=== PATIENT | male | born 1970 | race Caucasian/White ===

== ENCOUNTER 2017-03-19 19:05 | Emergency (ER) | payer BC, OTHER ==
[2017-03-19 19:19] VITALS: BP 134/77; PULSE 84; RESP 16; TEMP 97.9; O2SAT 94
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
== END 2017-03-19 19:33 | disposition home or self-care (01) ==
LOC: CED 19:05
DX: S09.90XA Unspecified injury of head, initial encounter (principal); W21.09XA Struck by other hit or thrown ball, initial encounter; Y99.8 Other external cause status; Y93.65 Activity, lacrosse and field hockey

== ENCOUNTER 2017-06-17 11:01 | Emergency (ER) | payer BC | END 2017-06-17 11:03 | disposition left against medical advice (07) | LOC: CED 11:01 | DX: Z53.21 Procedure and treatment not carried out due to patient leaving prior to being seen by health care provider (principal) ==

== ENCOUNTER 2017-06-28 20:03 | Emergency (ER) | payer BC ==
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
[2017-06-28 20:32] VITALS: BP 131/79
[2017-06-28] MEDS ORDERED: CLINDAMYCIN 150MG PREPACK#6 BTL TAKEHOME ONE (20:32)
[2017-06-28] MEDS ORDERED: SILVER SULFADIAZINE 50 GM JAR TP ONE (20:33)
[2017-06-28] MEDS ORDERED: HYDROCOD/APAP 5/325 PREPACK#6 BTL TAKEHOME ONE (20:33)
[2017-06-28] MEDS ORDERED: CLINDAMYCIN 150 MG CAP PO ONE (20:54)
== END 2017-06-28 21:06 | disposition home or self-care (01) ==
LOC: CED 20:03
DX: T25.221A Burn of second degree of right foot, initial encounter (principal); L03.115 Cellulitis of right lower limb; X12.XXXA Contact with other hot fluids, initial encounter

== ENCOUNTER 2017-11-21 07:22 | Emergency (ER) | payer BC ==
--- NOTE | 2017-11-21 08:13 | EDPHY ---
HPI/HX/ROS/PE/MDM Narrative: CHIEF COMPLAINT: Sore throat HPI: The patient is a 47-year-old male with no significant past medical history. He reports approximately 5 days of sore throat and headache. He complains primarily of swelling and pain to the bilateral anterior throat area, which is worse with swallowing. The patient has been able to drink a normal amount of water. He denies fever. He also complains of a tender lump to the right posterior neck which was quite painful over the last few days but has gotten slowly better. The patient has been taking Excedrin with some relief. He travels internationally frequently for work but has not traveled within the last several weeks. He denies chest pain, shortness of breath, cough, runny nose, abdominal pain. REVIEW OF SYSTEMS: Aside from elements discussed in the HPI, a comprehensive 10-point review of systems was reviewed and is negative. PMH: Includes multiple orthopedic injuries, but no significant medical history. SOCIAL HISTORY: Works as simulation software engineer. Denies drug abuse. PHYSICAL EXAM: General:Patient is alert, in no acute distress. ENT: Sclera mildly injected bilaterally. Posterior oropharynx is without erythema or exudate. Normal voice, no drooling. Neck: Normal inspection. Tender bilateral cervical lymphadenopathy is present with no obvious mass. A tender rubbery nodule is present along the right posterior lymphatic chain. Respiratory:No respiratory distress. Breath sounds normal bilaterally. Cardiovascular: Regular rate and rhythm. Strong peripheral pulses. Normal cap refill. Abdomen:The abdomen is nontender to palpation. There are no peritoneal signs. There are normal bowel sounds. Back: Normal to inspection. No tenderness to palpation. Skin: Normal color. No rash. Warm and dry. Extremities: Normal appearance. Full range of motion. Neuro: Oriented x3. Normal motor function. Normal sensory function. MDM: This patient presents with sore throat and cervical lymphadenopathy for several days. There are no signs of meningitis and the patient is afebrile. Of particular concern is the isolated posterior chain mass. This appears to represent reactive lymphadenopathy, but this is somewhat unusual. After discussion with the patient, I ordered CBC and chemistry panel which are normal. There are no signs of active leukemia or other white blood cell disturbance. I have also sent off an EBV panel which the patient was informed he needed to follow up on. The patient declined IV fluids. I will treat him with a single dose of IV Decadron to help with the swelling. I strongly encouraged the patient to follow up with his primary care physician for further workup. I suspect this represents a viral syndrome with reactive cervical lymphadenopathy, but the patient stands I am unable to rule out for the pathology without additional testing, which he declines. - Data Points Laboratory Results: Laboratory Results 11/21/17 Unknown 11/21/17 11/21/17 11/21/17 Unknown Unknown 08:24 WBC 9.89 10^3/uL H 10^3/uL (3.80-9.50) RBC 5.50 10^6/uL 10^6/uL (4.40-6.38) Hgb 15.5 g/dL g/dL (13.7-17.5) Hct 46.0 % % (40.0-51.0) MCV 83.6 fL fL (81.5-99.8) MCH 28.2 pg pg (27.9-34.1) MCHC 33.7 g/dL g/dL (32.4-36.7) RDW 13.2 % % (11.5-15.2) Plt Count 284 10^3/uL 10^3/uL (150-400) MPV 9.6 fL fL (8.7-11.7) Neut % (Auto) Pending Lymph % (Auto) Pending [place] % (Auto) Pending Eos % (Auto) Pending Baso % (Auto) Pending Nucleat RBC Rel Count Pending Absolute Neuts (auto) Pending Absolute Lymphs (auto) Pending Absolute Monos (auto) Pending Absolute Eos (auto) Pending Absolute Basos (auto) Pending Absolute Nucleated RBC Pending Immature Gran % Pending Immature Gran # Pending Platelet Estimate Pending POC Sodium 143 mEq/L mEq/L (135-145) POC Potassium 4.3 mEq/L mEq/L (3.3-5.0) POC Chloride 103.0 mEq/L mEq/L (97-110) POC Total CO2 25 mEq/L mEq/L (22-31) POC BUN 23 mg/dL mg/dL (7-23) POC Creatinine 1.0 mg/dL mg/dL (0.7-1.3) POC Glucose 136 mg/dL H mg/dL (70-100) POC Calcium 9.6 mg/dL mg/dL (8.5-10.4) EBV Capsid Ag IgG Ab Pending EBV Capsid Ag IgM Ab Pending EBV Nuclear Antigen Ab Pending EBV Interpretation Pending Point of Care Test Results: Chemistry 11/21/17 08:24 POC Sodium 143 mEq/L mEq/L (135-145) POC Potassium 4.3 mEq/L mEq/L (3.3-5.0) POC Chloride 103.0 mEq/L mEq/L (97-110) POC Total CO2 25 mEq/L mEq/L (22-31) POC BUN 23 mg/dL mg/dL (7-23) POC Creatinine 1.0 mg/dL mg/dL (0.7-1.3) POC Glucose 136 mg/dL H mg/dL (70-100) POC Calcium 9.6 mg/dL mg/dL (8.5-10.4) Strep Strep Throat Swab Collection 11/21/17 Date Strep Throat Swab Swab 07:40 Collection Time Strep Result Not Detected General Time Seen by Provider: 11/21/17 07:58 Initial Vital Signs: Initial Vital Signs Temperature (C) 37.0 C 11/21/17 07:30 Heart Rate 78 11/21/17 07:30 Respiratory Rate 18 11/21/17 07:30 Blood Pressure 136/86 H 11/21/17 07:30 O2 Sat (%) 95 11/21/17 07:30 O2 Delivery Mode Room Air Allergies/Adverse Reactions: Penicillins Allergy (Unknown, Verified 03/19/17 19:15) Unknown Home Medications: Medication Instructions Recorded NK [No Known Home Meds] 11/21/17 Departure - Departure Disposition: Home, Routine, Self-Care Clinical Impression: Viral syndrome, Cervical lymphadenopathy Condition: Good Instructions: Pharyngitis (ED) Additional Instructions: We have sent your blood off for a test called EBV. Please call the ED in 48 hours to receive this lab result. Follow-up with your primary care doctor without fail by the end of the week for re-evaluation. Return to the ED immediately for fever, worsening sore throat, difficulty breathing, severe headache, vomiting or other concerns. Use over the counter ibuprofen and tylenol as directed. Referrals: YUNIER STOLL [Primary Care Provider] - As per Instructions
[2017-11-21 09:39] LABS: PLATELET COUNT 284 10^3/uL (150-400)
[2017-11-21] MEDS ORDERED: DEXAMETHASONE 10 MG/ML VIAL IVP ONE (09:58)
[2017-11-21 10:13] VITALS: BP 130/78
== END 2017-11-21 10:12 | disposition home or self-care (01) ==
LOC: CED 07:22
DX: B34.9 Viral infection, unspecified (principal); R59.0 Localized enlarged lymph nodes
CPT/HCPCS: 80048-PO; 86664-90; 86665-90; 96374; J1100

== ENCOUNTER 2018-07-26 08:44 | Emergency (ER) | payer BC ==
[2018-07-26] MEDS ORDERED: FAMOTIDINE 20 MG in NS 100 ML IV ONE (09:07)
[2018-07-26] MEDS ORDERED: ONDANSETRON 4 MG/2 ML VIAL IVP ONE (09:07)
[2018-07-26] MEDS ORDERED: NS 1,000 ML IV ONE (09:07)
--- NOTE | 2018-07-26 09:20 | EDPHY ---
H & P Stated Complaint: PT. states 1hr after eating yesterday 2pm diarrhea-bloody, chills,vomiting Time Seen by Provider: 07/26/18 08:46 HPI/ROS: CHIEF COMPLAINT: Vomiting and diarrhea History by patient HISTORY OF PRESENT ILLNESS: 47-year-old otherwise healthy man presents complaining of acute onset diarrhea and vomiting which began yesterday and hour after eating tacos at a restaurant. He 1st noticed some upper abdominal pain which he describes as sharp and then he had an episode of diarrhea and then a 2nd episode of diarrhea that turned bloody. Initially was also watery but has turned more solid. He has had multiple episodes of vomiting without hematemesis. He denies any fever but has had some chills. He continues have intermittent sharp mostly upper abdominal pain. Does not radiate into his back. He has taken Pepto-Bismol twice with some relief from the pain. He has been able to drink water but not take any solid foods. He denies any urinary symptoms. He has no prior history of abdominal surgeries. He drinks very little alcohol. He does not smoke or use any drugs. He regularly takes Zantac for "heartburn". REVIEW OF SYSTEMS: As in HPI, and all other systems reviewed and are negative Source: Patient - Personal History Tetanus Vaccine Date: 12/2012 - Medical/Surgical History Hx Asthma: No Hx Chronic Respiratory Disease: No Hx Diabetes: No Hx Cardiac Disease: No Hx Renal Disease: No Hx Cirrhosis: No Hx Alcoholism: No Hx HIV/AIDS: No Hx Splenectomy or Spleen Trauma: No Other PMH: ORTHO SURGERY-LAMENECTOMY, 2 ULNAR TRANSPOSITION SURGERIES,T & A. Med hx-none - Social History Smoking Status: Never smoked - Physical Exam Exam: General Appearance: Alert, nontoxic-appearing. Eyes: Pupils equal and round, extraocular movements intact, no pallor or injection. Mouth: Mucous membranes moist. Pharynx clear Respiratory: Normal, effort, lungs are clear to auscultation. No wheezes, rales or rhonchi. Cardiovascular: Regular rate and rhythm. S1, S2, no murmurs, gallops or rubs appreciated Gastrointestinal: bowel sounds present, Abdomen is soft and mild tenderness mostly in the right lower quadrant, no masses Rectal: Positive tenderness, no stool in vault, mucous guaiac positive Back: No CVA tenderness, no bony tenderness Neurological: Awake, alert and oriented x 3, no pronator drift, normal gait, no pronator drift Skin: Warm and dry, no rashes. Musculoskeletal: No deformities or tenderness. Extremities: full range of motion, no edema Psychiatric: Patient has normal affect, there is no agitation. Constitutional: Initial Vital Signs Temperature (C) 36.8 C 07/26/18 08:50 Heart Rate 54 L 07/26/18 08:50 Respiratory Rate 16 07/26/18 08:50 Blood Pressure 123/76 H 07/26/18 08:50 O2 Sat (%) 95 07/26/18 08:50 O2 Delivery Mode Room Air Allergies/Adverse Reactions: Penicillins Allergy (Unknown, Verified 07/26/18 08:49) Unknown Home Medications: Medication Instructions Recorded Ondansetron Odt [Zofran Odt 4 mg 4 mg PO Q4 #12 tab 07/26/18 (*)] Zantac 07/26/18 Medical Decision Making ED Course/Re-evaluation: 47-year-old man presents with 12 hr of nausea, vomiting abdominal pain. Patient is noted have some mild right lower quadrant tenderness. He was given IV fluids, Zofran and Pepcid. He declined pain medicines. Labs were notable for normal white blood cell count and normal hemoglobin. Chemistries are notable for an elevated creatinine of 1.4 just above the upper limit of normal. Patient was urinating. This may be due to dehydration I am recommending recheck with his primary care physician next week for this.. On re-evaluation he was feeling about same but was tolerating p. O.. On repeat exam his tenderness has improved. and this point I think this is more likely an infectious gastroenteritis versus appendicitis, although we discussed that we cannot exclude appendicitis at this time. Patient was unable to give a stool sample in the ER. He remained hemodynamically stable. He was discharged home with Zofran for symptoms and recheck with his primary care physician in 24 hr for his abdominal pain and sooner if worse in the ER. Patient understands and is agreeable to this plan.. - Data Points Laboratory Results: 07/26/18 09:38 POC Sodium 143 mEq/L mEq/L (135-145) POC Potassium 4.2 mEq/L mEq/L (3.3-5.0) POC Chloride 107.0 mEq/L mEq/L (97-110) POC Total CO2 27 mEq/L mEq/L (22-31) POC BUN 15 mg/dL mg/dL (7-23) POC Creatinine 1.4 mg/dL H mg/dL (0.7-1.3) POC Glucose 100 mg/dL mg/dL (70-100) POC Calcium 9.3 mg/dL mg/dL (8.5-10.4) Medications Given: Discontinued Medications Sodium Chloride (Ns) 1,000 mls @ 0 mls/hr IV EDNOW ONE; Wide Open PRN Reason: Protocol Stop: 07/26/18 09:08 Last Admin: 07/26/18 09:27 Dose: 1,000 mls Famotidine 20 mg/ Sodium (Chloride) 102 mls @ 408 mls/hr IV EDNOW ONE Stop: 07/26/18 09:21 Last Admin: 07/26/18 09:28 Dose: 102 mls Ondansetron HCl (Zofran) 4 mg IVP EDNOW ONE Stop: 07/26/18 09:08 Last Admin: 07/26/18 09:22 Dose: 4 mg Point of Care Test Results: CBC CBC Collection Date 07/26/18 CBC Collection Time 09:25 WBC 9.23 RBC 5.50 HGB 15.5 HCT 46.9 PLT 240 Neut # 6.27 Neut 68.0 LYMPH # 2.17 LYMPH 23.5 MCV 85.3 Chemistry 07/26/18 09:38 POC Sodium 143 mEq/L mEq/L (135-145) POC Potassium 4.2 mEq/L mEq/L (3.3-5.0) POC Chloride 107.0 mEq/L mEq/L (97-110) POC Total CO2 27 mEq/L mEq/L (22-31) POC BUN 15 mg/dL mg/dL (7-23) POC Creatinine 1.4 mg/dL H mg/dL (0.7-1.3) POC Glucose 100 mg/dL mg/dL (70-100) POC Calcium 9.3 mg/dL mg/dL (8.5-10.4) Occult Blood Occult Blood Collection Date 07/26/18 Occult Blood Collection Time 09:50 Occult Blood Result Positive/Positive Departure - Departure Disposition: Home, Routine, Self-Care Clinical Impression: Vomiting and diarrhea Condition: Good Instructions: Dehydration (ED), Gastroenteritis (ED) Additional Instructions: You were seen by Dr. Binta Mcallister today. We have treated you for vomiting and diarrhea. Your blood work showed an elevated creatinine, a measure of your kidney function. Please have this rechecked by your primary care physician next week when you are over your acute illness. You may take Zofran as needed for nausea and vomiting. Please have her recheck with her primary care physician tomorrow for your abdominal pain and tenderness. Return to the ER sooner if for any worsening or new concerns. Referrals: YUNIER STOLL [Primary Care Provider] - As per Instructions Prescriptions: Ondansetron Odt [Zofran Odt 4 mg (*)] 4 mg PO Q4 #12 tab
[2018-07-26 11:15] VITALS: BP 120/69
== END 2018-07-26 11:14 | disposition home or self-care (01) ==
LOC: CED 08:44
DX: R11.10 Vomiting, unspecified (principal); R19.7 Diarrhea, unspecified; E86.9 Volume depletion, unspecified
CPT/HCPCS: 80048-ER; 85025-QW-ER; 96361-ER; 96374-ER; 99284-ER; J2405